=== PATIENT | female | born 1955 | race African-American/Black ===

== ENCOUNTER 2017-02-20 02:57 | Inpatient (IN) | payer MEDICAID, OTHER ==
[~2017-02-20] VITALS: Ht 152.4 cm; Wt 115.0 kg
[2017-02-20] MEDS ORDERED: LORazepam 2MG/ML-1ML VIAL IV ONE (03:30)
[2017-02-20 03:52] LABS: Basophils # (auto) 0 uL; Basophils % (auto) 0.1 % (0.0-2.0); Eosinophils # (auto) 0 uL; Eosinophils % (auto) 0.3 % (0.0-7.0); Hematocrit 43.9 % (36.0-46.0); Hemoglobin 14.7 g/dL (12.2-16.2); Lymphocytes # (auto) 0.7 uL; Lymphocytes % (auto) 8.5 % (10.0-50.0); Mean Corpuscular Hemoglobin 30.7 pg (28.0-32.0); Mean Corpuscular Hgb Conc. 33.4 g/dL (32.0-36.0); Mean Corpuscular Volume 91.9 fL (80.0-100.0); Mean Platelet Volume 8.4 fL (7.4-10.4); Monocytes # (auto) 0.6 uL; Monocytes % (auto) 6.8 % (0.0-12.0); Neutrophils # (auto) 6.9 uL; Neutrophils % (auto) 84.3 % (37.0-80.0); Platelet Count (auto) 361 10^3/uL (140-450); Red Cell Distribution Width 15.3 % (11.6-16.0); White Blood Cell 8.2 10^3/uL (4.4-10.8)
[2017-02-20] MEDS ORDERED: SODIUM CHLORIDE 0.9% 1,000 ML IV ONE ×2 (03:57→04:15)
[2017-02-20 04:02] LABS: INR 0.99 (0.9-1.15); Partial Thromboplastin Time 27.9 sec (22.64-33.71); Prothrombin Time 10.8 sec (9.37-12.3)
[2017-02-20] MEDS ORDERED: SODIUM CHLORIDE 0.9% 3,000 ML IV ONE (04:15)
[2017-02-20] MEDS ORDERED: VANCOMYCIN 1GM/250ML D5W 250 ML IV ONE (04:15)
[2017-02-20] MEDS ORDERED: PIPERACILLIN-TAZO 4.5GM 100 ML IV ONE (04:15)
[2017-02-20 04:27] LABS: Albumin 3.3 g/dL (3.4-5.0); Anion Gap 13 (5-15); Aspartate Aminotransferase 27 U/L (15-37); BUN/Creatinine Ratio 20.8; Blood Urea Nitrogen 16 mg/dL (7-18); Calcium 8.8 mg/dL (8.5-10.1); Carbon Dioxide 24 mmol/L (21-32); Chloride 108 mmol/L (98-107); GFR African American 102 mL/min; GFR Non-African American 84 mL/min; Glucose 90 mg/dL (74-106); Magnesium 2.4 mg/dL (1.6-2.6); Potassium 4.2 mmol/L (3.5-5.1); Sodium 145 mmol/L (136-145)
[2017-02-20 04:32] LABS: Alkaline Phosphatase 79 U/L (45-117); Bilirubin, Total 0.5 mg/dL (0.2-1.0); Total Protein 8.2 g/dL (6.4-8.2)
[2017-02-20 04:40] LABS: Allen Test Yes; Base Excess -1.5 mmol/L (-2.0-2.0); Blood COHb 0.3 % (0.5-1.5); Blood MetHb 0.3 % (0.0-1.5); MODE NASAL CANNULA; O2Hb 92.4 % (94.0-97.0); PCO2 49.3 mmHg (35.0-45.0); PCO2(T) 49.3 mmHg (35.0-45.0); PO2 79.6 mmHg (80.0-100.0); PO2(T) 79.6 mmHg (80.0-100.0); Sample Type Arterial; pH 7.323 (7.350-7.450)
[2017-02-20 04:51] LABS: B-Type Natriuretic Peptide 16.6 pg/mL (0-100); Temperature: 22.2 C (20.0-25.0)
[2017-02-20] MEDS ORDERED: SODIUM CHLORIDE 0.9% 1,000 ML IV SCH (07:23)
[2017-02-20] MEDS ORDERED: VANCOMYCIN PER PHARMACY 0 MG IV SCH (07:30)
[2017-02-20] MEDS ORDERED: NITROGLYCERIN 0.4 MG SL TAB SL PRN (07:30)
[2017-02-20] MEDS ORDERED: MORPHINE SULF INJ 2 MG/ML SYRINGE 1ML IV PRN (07:30)
[2017-02-20] MEDS: LORazepam 2MG/ML-1ML VIAL IV PRN ×2 (07:38→16:35)
[2017-02-20 08:04] LABS: Urine Blood Negative /uL (Negative); Urine Color Yellow (Yellow); Urine Glucose Normal (Normal); Urine Mucus FEW (None Seen); Urine Nitrite Negative (Negative); Urine RBC 5 /hpf (0 - 4); Urine Squamous Epithelial Cell FEW /hpf (<5); Urine pH 5.5 (5.0-8.0)
[2017-02-20 08:13] LABS: Urine Ketone 1+ (Negative)
[2017-02-20 08:19] LABS: Urine Bilirubin Negative (Negative)
[2017-02-20] MEDS: VANCOMYCIN 1GM/250ML D5W 250 ML IV SCH ×2 (09:45→17:00)
[2017-02-20] MEDS ORDERED: HALOPERIDOL LACTATE 5 MG/ML INJ VIAL IM ONE (11:15)
[2017-02-20] MEDS: PIPERACILLIN-TAZOB 3.375GM 100 ML IV SCH ×3 (12:20→23:20)
[2017-02-20] MEDS: SODIUM CHLORIDE 0.9% 1,000 ML IV SCH ×2 (14:13→21:58)
[2017-02-20 20:00] VITALS: BP 142/91
[2017-02-20 22:00] VITALS: BP 91/71
[2017-02-21] MEDS: SODIUM CHLORIDE 0.9% 1,000 ML IV SCH ×3 (00:08→20:08)
[2017-02-21] MEDS: VANCOMYCIN 1GM/250ML D5W 250 ML IV SCH ×2 (00:45→09:15)
[2017-02-21 05:00] VITALS: BP 96/58
[2017-02-21] MEDS: PIPERACILLIN-TAZOB 3.375GM 100 ML IV SCH (05:27)
[2017-02-21 06:12] LABS: Calcium 8.1 mg/dL (8.5-10.1); Potassium 3.5 mmol/L (3.5-5.1)
[2017-02-21 06:15] LABS: Albumin 2.6 g/dL (3.4-5.0); BUN/Creatinine Ratio 17.6
[2017-02-21 06:29] LABS: Bilirubin, Total 0.3 mg/dL (0.2-1.0); Total Protein 6.5 g/dL (6.4-8.2)
[2017-02-21 06:34] LABS: Basophils # (auto) 0 uL; Basophils % (auto) 0.2 % (0.0-2.0); Eosinophils # (auto) 0.1 uL; Eosinophils % (auto) 1.6 % (0.0-7.0); Hematocrit 38.2 % (36.0-46.0); Hemoglobin 12.9 g/dL (12.2-16.2); Lymphocytes % (auto) 16.4 % (10.0-50.0); Mean Corpuscular Hemoglobin 30.9 pg (28.0-32.0); Mean Corpuscular Hgb Conc. 33.8 g/dL (32.0-36.0); Mean Corpuscular Volume 91.5 fL (80.0-100.0); Mean Platelet Volume 8.6 fL (7.4-10.4); Monocytes # (auto) 0.7 uL; Monocytes % (auto) 11.3 % (0.0-12.0); Neutrophils # (auto) 4.4 uL; Neutrophils % (auto) 70.5 % (37.0-80.0); Platelet Count (auto) 328 10^3/uL (140-450); Red Cell Distribution Width 15.3 % (11.6-16.0); White Blood Cell 6.3 10^3/uL (4.4-10.8)
[2017-02-21 08:55] VITALS: BP 93/47
[2017-02-21] MEDS ORDERED: cefTRIAXone 1GM/50ML D5W 50 ML IV ONE (11:30)
[2017-02-21 12:51] VITALS: BP 136/76
[2017-02-21] MEDS ORDERED: CLON1TAB3 PO (14:05)
[2017-02-21] MEDS ORDERED: BEN10T PO (14:05)
[2017-02-21] MEDS ORDERED: POTA10TA51 PO (14:05)
[2017-02-21] MEDS ORDERED: BENZ2TAB2 PO (14:05)
[2017-02-21] MEDS ORDERED: AML5T PO (14:05)
[2017-02-21] MEDS ORDERED: FURO20TA PO (14:05)
[2017-02-21 16:39] VITALS: BP 115/74
[2017-02-21] MEDS ORDERED: clonazePAM 0.5 MG TAB PO ONE (19:30)
[2017-02-21 22:00] VITALS: BP 115/81
[2017-02-22 05:00] VITALS: BP 103/56
[2017-02-22] MEDS: SODIUM CHLORIDE 0.9% 1,000 ML IV SCH ×2 (06:03→16:08)
[2017-02-22 06:25] LABS: BUN/Creatinine Ratio 19.6; Calcium 8.1 mg/dL (8.5-10.1); Magnesium 2.4 mg/dL (1.6-2.6); Potassium 3.5 mmol/L (3.5-5.1)
[2017-02-22 07:54] VITALS: BP 129/69
[2017-02-22] MEDS ORDERED: cefTRIAXone 1GM/50ML D5W 50 ML IV SCH (09:00)
[2017-02-22 11:35] VITALS: BP 120/70
[2017-02-22] MEDS: MULTIPLE VITAMIN TAB PO SCH ×2 (16:00→22:00)
[2017-02-22 16:28] VITALS: BP 153/73
[2017-02-22] MEDS ORDERED: clonazePAM 0.5 MG TAB PO ONE (17:15)
[2017-02-22] MEDS ORDERED: CLIN1CAP4 PO (17:25)
[2017-02-22] MEDS ORDERED: ALPR0.25 PO (17:25)
[2017-02-22] MEDS ORDERED: CLON1TAB3 PO (17:25)
[2017-02-22 20:01] VITALS: BP 153/73
[2017-02-22] MEDS ORDERED: ASCORBIC ACID 500 MG TAB PO SCH (22:00)
[2017-02-22 22:24] VITALS: BP 117/75
[2017-02-23] MEDS ORDERED: MULTIPLE VITAMIN TAB PO SCH (10:00)
== END 2017-02-22 23:00 | DRG 720 ==
LOC: EDBD 02:57 → ER 02:57 → EDBD 02:58 → TELE 02:58 → TELE-EAST 16:51 → EAST 02-22 00:32
PROVIDERS: ADMIT Family Medicine; ATTEND Internal Medicine
DX: A41.9 Sepsis, unspecified organism (principal); G93.41 Metabolic encephalopathy; E87.2 Acidosis; Z68.42 Body mass index [BMI] 45.0-49.9, adult; Z68.43 Body mass index [BMI] 50.0-59.9, adult; I10 Essential (primary) hypertension; E66.9 Obesity, unspecified; J45.909 Unspecified asthma, uncomplicated; E66.01 Morbid (severe) obesity due to excess calories; F20.9 Schizophrenia, unspecified; F31.9 Bipolar disorder, unspecified; Z74.01 Bed confinement status; Z71.89 Other specified counseling; L03.116 Cellulitis of left lower limb; L03.115 Cellulitis of right lower limb
CPT/HCPCS: 36415; 36600; 51702; 70450; 71010; 80048; 80053; 80061; 80202; 80307; 80320; 81001; 81025; 82805; 83605; 83735; 83880; 84443; 84484; 85025; 85610; 85730; 86141; 87040; 87086; 93005; 96361; 96365; 96366; 96368; 96372; 96375; 99291; J0696; J2543

== ENCOUNTER 2017-07-06 23:51 | Inpatient (IN) | payer MEDICAID ==
[~2017-07-06] VITALS: Ht 165.1 cm; Wt 101.5 kg
[~2017-07-06 23:51] MED LIST: ALPR0.25 PO; AML5T PO; BEN10T PO; BENZ2TAB2 PO; CLIN1CAP4 PO; CLON1TAB3 PO; FURO20TA PO; POTA10TA51 PO
[2017-07-07] MEDS ORDERED: LORazepam 2MG/ML-1ML VIAL ONE (01:02)
[2017-07-07] MEDS ORDERED: diphenhdrAMINE HCL 50 MG/1 ML VL ONE (01:02)
[2017-07-07] MEDS ORDERED: LORazepam 2MG/ML-1ML VIAL IV ONE (01:15)
[2017-07-07] MEDS ORDERED: diphenhdrAMINE HCL 50 MG/1 ML VL IV ONE (01:15)
[2017-07-07 01:34] LABS: Urine Blood Negative /uL (Negative); Urine Color PINK (Yellow); Urine Glucose Normal (Normal); Urine Ketone 1+ (Negative); Urine Mucus FEW (None Seen); Urine Nitrite Negative (Negative); Urine RBC 3 /hpf (0 - 4); Urine Squamous Epithelial Cell FEW /hpf (<5)
[2017-07-07 01:39] LABS: Urine Bilirubin 1+ (Negative)
[2017-07-07 01:51] LABS: Basophils # (auto) 0 uL; Basophils % (auto) 0.4 % (0.0-2.0); Eosinophils # (auto) 0.1 uL; Eosinophils % (auto) 1.5 % (0.0-7.0); Hematocrit 41.8 % (36.0-46.0); Lymphocytes # (auto) 0.8 uL; Lymphocytes % (auto) 13.7 % (10.0-50.0); Mean Corpuscular Hgb Conc. 33.4 g/dL (32.0-36.0); Mean Corpuscular Volume 92.8 fL (80.0-100.0); Mean Platelet Volume 8.2 fL (6.9-10.8); Monocytes % (auto) 15.6 % (0.0-12.0); Neutrophils # (auto) 4.3 uL; Neutrophils % (auto) 68.8 % (37.0-80.0); Nucleated Red Blood Cells % 0.1 %; Platelet Count (auto) 298 10^3/uL (140-450); Red Cell Distribution Width 16.5 % (11.8-14.3); White Blood Cell 6.2 10^3/uL (4.4-10.8)
[2017-07-07 02:08] LABS: Partial Thromboplastin Time 26.3 sec (22.64-33.71); Prothrombin Time 10.9 sec (9.37-12.3)
[2017-07-07 02:09] LABS: Albumin 3.1 g/dL (3.4-5.0); Anion Gap 9 (5-15); Aspartate Aminotransferase 37 U/L (15-37); BUN/Creatinine Ratio 34.1; Blood Urea Nitrogen 15 mg/dL (7-18); Calcium 8.4 mg/dL (8.5-10.1); Carbon Dioxide 28 mmol/L (21-32); Chloride 108 mmol/L (98-107); GFR African American 188 mL/min; GFR Non-African American 155 mL/min; Glucose 83 mg/dL (74-106); Magnesium 2.1 mg/dL (1.6-2.6); Sodium 145 mmol/L (136-145)
[2017-07-07 02:12] LABS: Potassium 2.7 mmol/L (3.5-5.1)
[2017-07-07 02:14] LABS: Alkaline Phosphatase 65 U/L (45-117); Bilirubin, Total 0.4 mg/dL (0.2-1.0); Total Protein 6.4 g/dL (6.4-8.2)
[2017-07-07] MEDS ORDERED: SODIUM CHLORIDE 0.9% 1,000 ML IV ONE ×4 (02:30→10:00)
[2017-07-07] MEDS: POTASSIUM CHL 10MEQ/100ML 100 ML IV SCH ×6 (02:32→15:52)
[2017-07-07] MEDS ORDERED: IOHEXOL 350 MG/ML 100ML IJ ONE (03:42)
[2017-07-07] MEDS ORDERED: LEVOFLOXACIN 500MG 100 ML IV ONE (05:15)
[2017-07-07] MEDS ORDERED: SODIUM CHLORIDE 0.9% 1,000 ML IV SCH ×2 (06:28→22:30)
[2017-07-07] MEDS ORDERED: NITROGLYCERIN 0.4 MG SL TAB SL PRN (06:30)
[2017-07-07] MEDS ORDERED: MORPHINE SULFATE 10 MG/ML INJ 1ML SDV IV PRN (06:30)
[2017-07-07] MEDS ORDERED: LORazepam 0.5 MG TAB PO PRN (06:30)
[2017-07-07] MEDS ORDERED: TEMAZEPAM 15 MG CAP PO PRN (06:30)
[2017-07-07] MEDS ORDERED: ACETAMINOPHEN 325 MG TAB PO PRN (06:30)
[2017-07-07] MEDS ORDERED: ONDANSETRON HCL 4 MG/2 ML VIAL IV PRN (06:30)
[2017-07-07] MEDS: amLODIPine BESYLATE 5 MG TAB PO SCH (10:00)
[2017-07-07] MEDS: ENOXAPARIN SOD 40 MG/0.4 ML SYRINGE SC SCH (10:00)
[2017-07-07] MEDS ORDERED: clonazePAM 0.5 MG TAB PO ONE (10:45)
[2017-07-07] MEDS: FAMOTIDINE 20 MG TAB PO SCH ×2 (11:16→21:44)
[2017-07-07] MEDS: FUROSEMIDE 20 MG TAB PO SCH (11:17)
[2017-07-07] MEDS: BENAZEPRIL HCL 10 MG TAB PO SCH (11:19)
[2017-07-07 17:00] VITALS: BP 94/48
[2017-07-07 21:30] VITALS: BP 91/46
[2017-07-07] MEDS: clonazePAM 0.5 MG TAB PO SCH (21:44)
[2017-07-07] MEDS ORDERED: PROPRANOLOL HCL 20 MG TAB PO SCH (22:00)
[2017-07-08 04:59] VITALS: BP 105/70
[2017-07-08 06:30] VITALS: BP 100/55
[2017-07-08 07:06] LABS: Basophils # (auto) 0 uL; Basophils % (auto) 0.5 % (0.0-2.0); Eosinophils # (auto) 0.3 uL; Eosinophils % (auto) 5.6 % (0.0-7.0); Hematocrit 41.9 % (36.0-46.0); Hemoglobin 13.8 g/dL (12.2-16.2); Lymphocytes # (auto) 0.9 uL; Lymphocytes % (auto) 17.6 % (10.0-50.0); Mean Corpuscular Hemoglobin 31.2 pg (28.0-32.0); Mean Corpuscular Hgb Conc. 32.9 g/dL (32.0-36.0); Mean Platelet Volume 8.1 fL (6.9-10.8); Monocytes # (auto) 0.9 uL; Monocytes % (auto) 17.6 % (0.0-12.0); Neutrophils # (auto) 2.9 uL; Neutrophils % (auto) 58.7 % (37.0-80.0); Nucleated Red Blood Cells % 0.1 %; Platelet Count (auto) 302 10^3/uL (140-450); Red Cell Distribution Width 16.4 % (11.8-14.3)
[2017-07-08 07:35] LABS: Albumin 2.8 g/dL (3.4-5.0); BUN/Creatinine Ratio 29.4; Bilirubin, Total 0.2 mg/dL (0.2-1.0); Calcium 8.4 mg/dL (8.5-10.1); Magnesium 2.3 mg/dL (1.6-2.6); Potassium 3.6 mmol/L (3.5-5.1); Total Protein 6.3 g/dL (6.4-8.2)
[2017-07-08] MEDS: HYDROcodone-ACET 5/325MG TAB PO PRN ×2 (07:43→12:04)
[2017-07-08 08:30] VITALS: BP 118/58
[2017-07-08] MEDS ORDERED: clonazePAM 0.5 MG TAB PO SCH (10:00)
[2017-07-08] MEDS: BENAZEPRIL HCL 10 MG TAB PO SCH (10:00)
[2017-07-08] MEDS ORDERED: LEVOFLOXACIN 750MG 150 ML IV SCH (10:00)
[2017-07-08] MEDS ORDERED: PATIENTS OWN MEDICATION (Clonazepam 1 TAB) PO SCH (10:00)
[2017-07-08] MEDS: amLODIPine BESYLATE 5 MG TAB PO SCH (10:00)
[2017-07-08] MEDS: clonazePAM 0.5 MG TAB PO SCH ×3 (10:36→21:32)
[2017-07-08] MEDS: FUROSEMIDE 20 MG TAB PO SCH (10:37)
[2017-07-08] MEDS: ENOXAPARIN SOD 40 MG/0.4 ML SYRINGE SC SCH (10:37)
[2017-07-08] MEDS: FAMOTIDINE 20 MG TAB PO SCH ×2 (10:37→21:33)
[2017-07-08 17:30] VITALS: BP 92/45
[2017-07-08] MEDS ORDERED: LEVOFLOXACIN 500 MG TAB PO ONE (18:00)
[2017-07-08] MEDS: PROPRANOLOL HCL 20 MG TAB PO SCH (21:32)
[2017-07-08 21:39] VITALS: BP 90/51
[2017-07-09] MEDS: clonazePAM 0.5 MG TAB PO SCH ×2 (05:34→12:50)
[2017-07-09 05:37] VITALS: BP 127/71
[2017-07-09 06:25] LABS: Hematocrit 40.1 % (36.0-46.0); Hemoglobin 13.3 g/dL (12.2-16.2); Mean Corpuscular Hemoglobin 31.2 pg (28.0-32.0); Mean Corpuscular Hgb Conc. 33.3 g/dL (32.0-36.0); Mean Corpuscular Volume 93.8 fL (80.0-100.0); Mean Platelet Volume 8.2 fL (6.9-10.8); Platelet Count (auto) 300 10^3/uL (140-450); Red Cell Distribution Width 16.5 % (11.8-14.3)
[2017-07-09 06:37] LABS: Calcium 8.4 mg/dL (8.5-10.1); Magnesium 2.2 mg/dL (1.6-2.6); Potassium 3.9 mmol/L (3.5-5.1)
[2017-07-09 06:51] LABS: Metamyelocytes % 0; Myelocytes % 0; Promyelocytes % 0; Reactive Lymphocytes 0
[2017-07-09 06:58] LABS: Hypersegmented Neutrophils Present; Platelet Estimate Adequate
[2017-07-09 06:59] LABS: Anisocytosis Slight
[2017-07-09] MEDS: HYDROcodone-ACET 5/325MG TAB PO PRN ×3 (09:03→17:09)
[2017-07-09 09:16] VITALS: BP 141/97
[2017-07-09] MEDS: amLODIPine BESYLATE 5 MG TAB PO SCH (09:32)
[2017-07-09] MEDS: PROPRANOLOL HCL 20 MG TAB PO SCH (09:32)
[2017-07-09] MEDS: FUROSEMIDE 20 MG TAB PO SCH (09:32)
[2017-07-09] MEDS: BENAZEPRIL HCL 10 MG TAB PO SCH (09:33)
[2017-07-09] MEDS: ENOXAPARIN SOD 40 MG/0.4 ML SYRINGE SC SCH (10:00)
[2017-07-09] MEDS: FAMOTIDINE 20 MG TAB PO SCH (10:00)
[2017-07-09] MEDS ORDERED: LEVOFLOXACIN 500 MG TAB PO SCH (10:00)
[2017-07-09 12:30] VITALS: BP 94/74
== END 2017-07-09 18:05 | DRG 137 ==
LOC: EDBD 23:51 → ER 23:54 → TELE 23:55 → TELE-E-ADS 07-07 08:59 → TELE-CENTR 07-07 09:58
PROVIDERS: ADMIT Nurse Practitioner; ATTEND Internal Medicine
DX: J69.0 Pneumonitis due to inhalation of food and vomit (principal); G92 Toxic encephalopathy; E88.09 Other disorders of plasma-protein metabolism, not elsewhere classified; E44.1 Mild protein-calorie malnutrition; F20.9 Schizophrenia, unspecified; E87.6 Hypokalemia; K44.9 Diaphragmatic hernia without obstruction or gangrene; J98.11 Atelectasis; F31.9 Bipolar disorder, unspecified; F41.9 Anxiety disorder, unspecified; G24.9 Dystonia, unspecified; I10 Essential (primary) hypertension; R79.1 Abnormal coagulation profile; Z90.49 Acquired absence of other specified parts of digestive tract
CPT/HCPCS: 36415; 70450; 71010; 71275; 80048; 80053; 80307; 80320; 81001; 82962; 83735; 84484; 85007; 85025; 85027; 85379; 85610; 85730; 87040; 87081; 93005; 96361; 96365; 97163; J1956

== ENCOUNTER → 2017-12-18 | Emergency (ER) | payer MEDICAID ==
[~2017-12-18] VITALS: Ht 170.2 cm; Wt 90.7 kg
[~2017-12-18] MED LIST changes: -CLIN1CAP4 PO; -CLON1TAB3 PO; -POTA10TA51 PO
[2017-12-18 21:26] VITALS: BP 121/69
[2017-12-18 21:53] LABS: Basophils # (auto) 0 uL; Basophils % (auto) 0.5 % (0.0-2.0); Eosinophils # (auto) 0.1 uL; Eosinophils % (auto) 1.6 % (0.0-7.0); Hematocrit 44.5 % (36.0-46.0); Lymphocytes # (auto) 0.8 uL; Lymphocytes % (auto) 14.9 % (10.0-50.0); Mean Corpuscular Hgb Conc. 33.7 g/dL (32.0-36.0); Monocytes # (auto) 0.6 uL; Monocytes % (auto) 11.4 % (0.0-12.0); Neutrophils # (auto) 3.8 uL; Neutrophils % (auto) 71.6 % (37.0-80.0); Nucleated Red Blood Cells % 0.1 %; Platelet Count (auto) 328 10^3/uL (140-450); Red Blood Cells 4.84 10^6/uL (4.0-5.20); White Blood Cell 5.2 10^3/uL (4.4-10.8)
[2017-12-18 22:35] LABS: Albumin 3.7 g/dL (3.4-5.0); Anion Gap 3 (5-15); Calcium 9.3 mg/dL (8.5-10.1); Carbon Dioxide 31 mmol/L (21-32); Chloride 105 mmol/L (98-107); Potassium 4.4 mmol/L (3.5-5.1); Sodium 139 mmol/L (136-145)
[2017-12-18 22:38] LABS: BUN/Creatinine Ratio 28.6; Blood Urea Nitrogen 20 mg/dL (7-18); GFR African American 109 mL/min; Glucose 86 mg/dL (74-106)
[2017-12-18 22:39] LABS: Alanine Aminotransferase 18 U/L (13-56); Aspartate Aminotransferase 12 U/L (15-37); Blood Alcohol < 3.0 mg/dL (0-5); GFR Non-African American 90 mL/min
[2017-12-18 22:42] LABS: Alkaline Phosphatase 106 U/L (45-117); Bilirubin, Total 0.2 mg/dL (0.2-1.0); Total Protein 7.9 g/dL (6.4-8.2)
== END | disposition left against medical advice (07) ==
LOC: ER 20:57
DX: Z04.6 Encounter for general psychiatric examination, requested by authority (principal); Z53.21 Procedure and treatment not carried out due to patient leaving prior to being seen by health care provider
CPT/HCPCS: 36415; 80053; 80320; 85025

== ENCOUNTER 2025-05-20 18:21 | Emergency (ER) | payer MEDICARE, MEDICAID ==
[~2025-05-20] VITALS: Ht 165.1 cm; Wt 99.8 kg
[~2025-05-20 18:21] MED LIST changes: +ALBU108A5 IN; +AZIT-185 PO; -BEN10T PO; +BENA10TA16 PO; -BENZ2TAB2 PO; +BENZ2TAB50 PO; +FURO1TAB33 PO; -FURO20TA PO; +IPRIH INH; +PRED10TA PO
[2025-05-20 18:34] VITALS: BP 124/65; PULSE 101; RESP 20; TEMP 98; O2SAT 95
--- NOTE | 2025-05-20 18:48 | ED.PDOC ---
GI ASSESSMENT HPI Comments 69-year-old female came to ER for nausea and vomiting. Patient has history of COPD on home oxygen at 2 L/min. Has been complaining of epigastric/right lower quadrant abdominal pain for the past few days, last bowel movement was 2 days ago, and this morning she started having episodes of nausea and vomiting. Patient is saturating 94% at 2 L/min Chief Complaint: Nausea/Vomiting Time Seen by MD: 18:47 Primary Care Provider: UNKNOWN Reviewed Notes: Medical Delivery Driver Notes Allergies: Coded Allergies: NO KNOWN ALLERGIES (Unverified , 02/20/17) Home Meds Active Scripts Dicyclomine Hcl (BENTYL CAPSULE) 10 Mg Cp, 1 CAP PO Q6HPRN PRN, #100 CAP 3 Refills Prov:JEAN PIERRE BROWN MD 05/20/25 Ondansetron HCl (Ondansetron Hydrochloride) 8 Mg Tab, 8 MG PO Q6HP PRN, #30 TAB Prov:JEAN PIERRE BROWN MD 05/20/25 Ipratropium [place] Hfa (Atrovent Hfa) 17 Mcg Aer, 2 PUFF INH QID, #12.9 GRAMS 5 Refills Prov:LUIS ECHEVARRIA MD 09/20/24 Albuterol Sulfate (Albuterol Sulfate Hfa) 108 Mcg/Act Aer, 108 MCG IN Q4H PRN for 30 Days, #10 AER Prov:LUIS ECHEVARRIA MD 09/20/24 Prednisone (Prednisone) 10 Mg Tab, 10 MG PO BID for 3 Days, #6 MG Prov:LUIS ECHEVARRIA MD 09/20/24 Azithromycin (ZITHROMAX TABLET) 250 Mg Tb, 250 MG PO DAILY for 3 Days, #3 TAB Prov:LUIS ECHEVARRIA MD 09/20/24 Alprazolam (Xanax) 0.25 Mg Tb, 1 TAB PO BID, #60 TAB Prov:PAPA SELLERS MD 02/22/17 Reported Medications Benztropine Mesylate (Benztropine Mesylate) 2 Mg Tab, 1 TAB PO DAILY, #60 TAB 1 Refill 02/21/17 Amlodipine Besylate (NORVASC TABLET) 5 Mg Tb, 1 TAB PO DAILY, #30 TAB 5 Refills 02/21/17 Benazepril Hcl (LOTENSIN TABLET) 10 Mg Tb, 10 MG PO DAILY 02/21/17 Furosemide (Lasix) 20 Mg Tb, 1 TAB PO DAILY, #90 TAB 1 Refill 02/21/17 Information Source: Patient, Emergency Med Personnel Mode of Arrival: EMS Timing: Hours Duration: Intermittent Quality: Aching Vomitus: Watery Stool: Normal Severity: Moderate Recent: None Recent Hx of: Abdominal Surgery Pain Location: Epigastric, RLQ Modifying Factors: Nothing Associated sign and symptoms: Nausea, Vomiting, Abdominal Pain Past Medical History PAST MEDICAL HISTORY: Anxiety, COPD, Depression, High Lipids, HTN, Schizophrenia Surgical History: OUTCOMES ANALYST History: No Pertinent OUTCOMES ANALYST History Family History Family History: Reviewed,noncontributory to illness Social History Smoker: Non-Smoker Alcohol: Denies ETOH Use Drugs: Denies Drug Use Lives In: Assisted Care Constitutional: denies: chills, diaphoresis, fatigue, fever, malaise, sweats, weakness, others EENTM: denies: blurred vision, double vision, ear bleeding, ear discharge, ear drainage, ear pain, ear ringing, eye pain, eye redness, hearing loss, mouth pain, mouth swelling, nasal discharge, nose bleeding, nose congestion, nose pain, photophobia, tearing, throat pain, throat swelling, voice changes, others Respiratory: denies: cough, hemoptysis, orthopnea, SOB at rest, shortness of breath, SOB with excertion, stridor, wheezing, others Cardiovascular: denies: chest pain, dizzy spells, diaphoresis, Dyspnea on exertion, edema, irregular heart beat, left arm pain, lightheadedness, palpitations, PND, syncope, others Gastrointestinal: reports: abdominal pain, constipated, nausea, vomiting; denies: abdomen distended, blood streaked bowels, diarrhea, dysphagia, difficulty swallowing, hematemesis, melena, poor appetite, poor fluid intake, rectal bleeding, rectal pain, others Genitourinary: denies: abnormal vagina bleeding, burning, dyspareunia, dysuria, flank pain, frequency, hematuria, incontinence, pain, , vagina discha rge, urgency, others Neurological: denies: dizziness, fainting, headache, left sided numbness, left sided weakness, numbness, paresthesia, pre-existing deficit, right sided numbness, right sided weakness, seizure, speech problems, tingling, tremors, weakness, others Musculoskeletal: denies: back pain, gout, joint pain, joint swelling, muscle pain, muscle stiffness, neck pain, others Integumetry: denies: bruises, change in color, change in hair/nails, dryness, laceration, lesions, lumps, rash, wounds, others Allergic/Immunocompromised: denies: Difficulty Healing, Frequent Infections, Hives, Itching, others Hematologic/Lymphatic: denies: anemia, blood clots, easy bleeding, easy bruising, swollen glands, others Endocrine: denies: excessive hunger, excessive sweating, excessive thirst, excessive urination, flushing, intolerance to cold, intolerance to heat, unexplained weight gain, unexplained weight loss, others Psychiatric: denies: anxiety, bipolar disorder, depression, hopeless, panic disorder, schizophrenia, sleepless, suicidal, others Physical Exam General Appearance: No Apparent Distress, Normal HEENT: Normal ENT Inspection, Pharynx Normal, TMs Normal Neck: Full Range of Motion, Non-Tender, Normal, Normal Inspection Respiratory: Chest Non-Tender, Lungs Clear, No Accessory Muscle Use, No Respiratory Distress, Normal Breath Sounds Cardiovascular: No Edema, No JVD, No Murmur, No Gallop, Normal Peripheral Pulses, Regular Rate/Rhythm Breast Exam: Deferred Gastrointestinal: No Organomegaly, Non Tender, No Pulsatile Mass, Normal Bowel Sounds, Soft Genitalia: Deferred Pelvic: Deferred Rectal: Deferred Extremities: No calf tenderness, Normal capillary refill, Normal inspection, Normal range of motion, Non-tender, No pedal edema Musculoskeletal : Apperance: Normal Neurologic: Alert, four roll calender operator II-XII nml as Tested, No Motor Deficits, Normal Affect, Normal Mood, No Sensory Deficits Cerebellar Function: Normal Reflexes: Normal Skin: Dry, Normal Color, Warm Lymphatic: No Adenopathy Was a procedure done? Was a procedure done?: No GI differential Dx Differential Diagnosis: Cholecystitis, Constipation, Diverticular disease, Gastritis/PUD, Gastroenteritis, Ovarian cyst/torsion, Pancreatitis, UTI X-Ray, Labs, Meds, VS Vital Signs Date Time Temp Pulse Resp B/P (MAP) Pulse Ox O2 Delivery O2 Flow Rate FiO2 05/20/25 18:34 101 05/20/25 18:34 98.0 104 20 124/65 95 98.0 Lab Test 05/20/25 19:02 Range/Units White Blood Count 5.4 4.4-10.8 10^3/uL Red Blood Count 4.93 4.0-5.20 10^6/uL Hemoglobin 15.2 12.2-16.2 g/dL Hematocrit 44.9 36.0-46.0 % Mean Corpuscular Volume 91.0 80.0-100.0 fL Mean Corpuscular Hemoglobin 30.8 28.0-32.0 pg Mean Corpuscular Hemoglobin Concent 33.9 32.0-36.0 g/dL Red Cell Distribution Width 15.4 H 11.8-14.3 % Platelet Count 249 140-450 10^3/uL Mean Platelet Volume 8.5 6.9-10.8 fL Neutrophils (%) (Auto) 62.1 37.0-80.0 % Lymphocytes (%) (Auto) 22.4 10.0-50.0 % Monocytes (%) (Auto) 13.3 H 0.0-12.0 % Eosinophils (%) (Auto) 1.5 0.0-7.0 % Basophils (%) (Auto) 0.7 0.0-2.0 % Neutrophils # (Auto) 3.4 1.6-8.6 10 ^3/uL Lymphocytes # (Auto) 1.2 0.4-5.4 10 ^3/uL Monocytes # (Auto) 0.7 0-1.3 10 ^3/uL Eosinophils # (Auto) 0.1 0-0.8 10 ^3/uL Basophils # (Auto) 0 0-0.2 10 ^3/uL Nucleated Red Blood Cells 0.1 % Sodium Level 143 136-145 mmol/L Potassium Level 3.8 3.5-5.1 mmol/L Chloride Level 108 H 98-107 mmol/L Carbon Dioxide Level 29 20-31 mmol/L Anion Gap 6 5-15 Blood Urea Nitrogen 12 9-23 mg/dL Creatinine 0.75 0.550-1.02 mg/dL Glomerular Filtration Rate Calc 87 >90 mL/min BUN/Creatinine Ratio 16.0 10.0-20.0 Serum Glucose 110 H 74-106 mg/dL Calcium Level 8.9 8.7-10.4 mg/dL Total Bilirubin 0.2 0.2-1.0 mg/dL Aspartate Amino Transferase (AST) 11 L 13-40 U/L Alanine Aminotransferase (ALT) < 9 7-40 U/L Alkaline Phosphatase 77 46-116 U/L Total Protein 7.2 5.7-8.2 g/dL Albumin 4.2 3.2-4.8 g/dL Lipase 26 12-53 U/L Current Medications Medications (Trade) Dose Ordered Sig/Frank Route Start Time Stop Time Status Last Admin Ondansetron HCl (Zofran Po) 8 mg ONCE ONCE PO 05/20/25 18:45 05/20/25 18:46 DC 05/20/25 23:00 Acetaminophen/ Hydrocodone Bitart ([place] 5/325MG Tab) 1 tab ONCE ONCE PO 05/20/25 18:45 05/20/25 18:46 DC 05/20/25 23:00 Time of 1ST Reevaluation: 18:45 Reevaluation 1ST: Unchanged Patient Education/Counseling: Diagnosis, Treatment Family Education/Counseling: No Family Present SEPSIS Sepsis Screen Date sepsis recognized/suspect: May 20, 2025 Time Sepsis recognized/suspect: 1834 Recent Procedure: No On Antibiotic Therapy: No Respiratory Rate >20: No Heart Rate >90: Yes Temp<36 C (96.8 F) or >38.3 C: No SBP <90 or MAP <65 mmHG: No New Acute Mental Status Change: No Is the patient on CPAP, BIPAP,: No Physician Orders Urinalysis (05/20/25 18:42) Ct Ab Pel Wo Con-No Oral Or Iv (05/20/25 18:42) Vital Signs Date Time Temp Pulse Resp B/P (MAP) Pulse Ox O2 Delivery O2 Flow Rate FiO2 05/20/25 18:34 101 05/20/25 18:34 98.0 104 20 124/65 95 98.0 Laboratory Tests Test 05/20/25 19:02 White Blood Count 5.4 10^3/uL (4.4-10.8) Medications Medications Dose Ordered Sig/Frank Route Start Time Stop Time Status Last Admin Dose Admin Acetaminophen/ Hydrocodone Bitart 1 tab ONCE ONCE PO 05/20/25 18:45 05/20/25 18:46 DC 05/20/25 23:00 Ondansetron HCl 8 mg ONCE ONCE PO 05/20/25 18:45 05/20/25 18:46 DC 05/20/25 23:00 Departure 1 Departure Time of Disposition: 20:30 Impression: Primary Impression: Nausea and vomiting Additional Impression: Abdominal cramping Disposition: HOME / SELF CARE / HOMELESS Condition: Stable e-Prescriptions Dicyclomine Hcl (BENTYL CAPSULE) 10 Mg Cp 1 CAP PO Q6HPRN PRN, #100 CAP 3 Refills Prov: JEAN PIERRE BROWN MD 05/20/25 Ondansetron HCl (Ondansetron Hydrochloride) 8 Mg Tab 8 MG PO Q6HP PRN, #30 TAB Prov: JEAN PIERRE BROWN MD 05/20/25 Discharged With: Self Critical Care Note Critical Care Time?: No Stability Stability form required: No Heart Score Heart Score: Heart Score Response (Comments) Value History N/A 0 EKG N/A 0 Age N/A 0 Risk Factors N/A 0 Troponin N/A 0 Total 0 I personally scribed for JEAN PIERRE BROWN MD ([email or web address]) on 05/20/25 at 18:48. Electronically submitted by Stefan Randel ([email or web address]). JEAN PIERRE BROWN MD May 20, 2025 18:48
--- NOTE | 2025-05-20 18:49 | ECG ---
[facility] Test Date: 2025-05-20 Test Time: 18:29:53 Pat Name: CADE DUONG Department: Room: Gender: F Loop Sewer: ROLANDO : 1955 Requested By: JEAN PIERRE BROWN Order Number: [id number] Reading MD: Gautam Talbot Measurements Intervals [place] Rate: 101 P: 43 PA: 160 QRS: 46 QRSD: 89 T: 60 QT: 332 QTc: 431 Interpretive Statements Sinus tachycardia Abnormal R-wave progression, early transition Borderline T abnormalities, anterior leads Electronically Signed On 05-24-2025 10:21:47 PDT by Gautam Talbot Please click the below link to view image of tracing.
[2025-05-20 19:24] LABS: Hematocrit 44.9 % (36.0-46.0); Hemoglobin 15.2 g/dL (12.2-16.2); Mean Corpuscular Hemoglobin 30.8 pg (28.0-32.0); Mean Corpuscular Volume 91.0 fL (80.0-100.0); Nucleated Red Blood Cells % 0.1 %
[2025-05-20 19:38] LABS: Albumin 4.2 g/dL (3.2-4.8); Alkaline Phosphatase 77 U/L (46-116); Anion Gap 6 (5-15); BUN/Creatinine Ratio 16.0 (10.0-20.0); Blood Urea Nitrogen 12 mg/dL (9-23); Calcium 8.9 mg/dL (8.7-10.4); Carbon Dioxide 29 mmol/L (20-31); Lipase 26 U/L (12-53); Potassium 3.8 mmol/L (3.5-5.1); Sodium 143 mmol/L (136-145); Total Protein 7.2 g/dL (5.7-8.2)
[2025-05-20 19:40] LABS: Chloride 108 mmol/L (98-107); Glucose 110 mg/dL (74-106)
--- NOTE | 2025-05-20 19:40 | DVH ---
Exam: CT CT AB PEL WO CON-NO ORAL OR IV History: right flank pain Comparison Study: None TECHNIQUE: Multidetector CT of the abdomen and pelvis was performed from lung bases to pubic symphysi s. Imaging was performed without IV contrast. Axial, coronal, and sagittal multiplanar reformats were obtained from the axial data set by the technologist. RADIATION DOSE: DLP 1373.76 mGy.cm; CTDI vol 27.21 mGy. Findings: Lungs: The lung bases are clear. Heart: No cardiomegaly or pericardial effusion. Liver: Right hepatic cyst. Gallbladder: Cholecystectomy. Spleen: Unremarkable Pancreas: Unremarkable Adrenals: Unremarkable Kidneys: Bilateral renal atrophy with nodular contours. Nonobstructive left nephrolithiasis. GI tract: Small hiatal hernia. Diverticulosis without evidence of acute diverticulitis. : Unremarkable. Vasculature: Unremarkable Lymphadenopathy: Absent Peritoneum: No ascites Musculoskeletal: Moderate multilevel degenerative changes of the thoracolumbar spine. Marked degener ative changes of bilateral hips. Soft tissues: Unremarkable Impression: 1. No acute abdominopelvic abnormalities. 2. Nonobstructive left nephrolithiasis. 3. Diverticulosis without evidence of acute diverticulitis.
[2025-05-20 19:41] LABS: Alanine Aminotransferase < 9 U/L (7-40); Bilirubin, Total 0.2 mg/dL (0.2-1.0)
[2025-05-20] MEDS ORDERED: DICY10CA PO (20:25)
[2025-05-20] MEDS ORDERED: ONDA-180 PO (20:25)
[2025-05-20] MEDS: HYDROcodone-ACET 5/325MG TAB PO ONE (23:00)
[2025-05-20] MEDS: ONDANSETRON ODT 4 MG TAB PO ONE (23:00)
== END 2025-05-21 01:30 | disposition home or self-care (01) ==
LOC: EDUNIT# 18:21 → ER 18:21 → EDBD 18:21 → ER 05-21 01:30
DX: R10.31 Right lower quadrant pain (principal); R11.2 Nausea with vomiting, unspecified; I10 Essential (primary) hypertension; E78.5 Hyperlipidemia, unspecified; F20.9 Schizophrenia, unspecified; F32.A Depression, unspecified; F41.9 Anxiety disorder, unspecified; J44.9 Chronic obstructive pulmonary disease, unspecified; Z79.899 Other long term (current) drug therapy
CPT/HCPCS: 36415; 74176; 80053; 83690; 85025; 93005; 99284; Q0162